=== PATIENT | female | born 1990 | race Hispanic/Latino ===

== ENCOUNTER → 2024-06-17 | Outpatient (CLI) | payer OTHER | END | disposition home or self-care (01) | LOC: RAH 13:41 | PROVIDERS: ATTEND Family Medicine | DX: R22.1 Localized swelling, mass and lump, neck (principal) | CPT/HCPCS: 76536 ==

== ENCOUNTER 2025-03-07 13:06 | Emergency (ER) | payer OTHER ==
[~2025-03-07] VITALS: Ht 152.4 cm; Wt 85.7 kg
--- NOTE | 2025-03-07 13:14 | ERN ---
ED Note History of Present Illness Stated Complaint: GENREALIZED RASH Chief Complaint: Allergic Reaction Time Seen by MD: 13:07 Dictation: PATIENT IS A 34-YEAR-OLD FEMALE COMING IN WITH A GENERALIZED MACULAR RASH THAT IS NONPRURITIC ONSET WAS LAST NIGHT. SHE STATES SHE HAS HAD LOW-GRADE FEVER WITH FLU-LIKE SYMPTOMS FOR THE LAST TWO DAYS. NO NAUSEA VOMITING NO LOSS OF TASTE OR SMELL. SHE HAS A MILD SORE THROAT WITH CLEAR RHINITIS. NO CHANGE IN URINATION NO BACK PAIN NO CHEST PAIN. PRIMARY CARE DOCTOR. SHE SAID SHE HAS N OT TAKEN ANYTHING FOR THE ALLERGIES BECAUSE SHE HAS MULTIPLE DRUG ALLERGIES TO INCLUDE ANTIHISTAMINES AND DOES NOT KNOW WHAT TO TAKE. BILATERAL BREATH SOUNDS ARE CLEAR AT THIS TIME, NO ANGIOEDEMA NOTED NO STRIDOR Allergies: Coded Allergies: Antihistamines - Alkylamine (Unverified Allergy, Unknown, 03/07/25) Antihistamines - Ethanolamine (Unverified Allergy, Unknown, 03/07/25) Antihistamines - Piperazine (Unverified Allergy, Unknown, 03/07/25) Antihistamines - Piperidine (Unverified Allergy, Unknown, 03/07/25) acetaminophen (Unverified Allergy, Unknown, 03/07/25) cetirizine (Unverified Allergy, Unknown, 03/07/25) diphenhydramine (Unverified Allergy, Unknown, 03/07/25) guaifenesin (Unverified Allergy, Unknown, 03/07/25) Past Medical History Past Medical History: No Pertinent History Surgical History: None History: Not Applicable RN Note Reviewed/Agreed w/PFSH: Yes Review of System Dictation CONSTITUTIONAL: NEGATIVE EXCEPT FOR HPI FEVER HEAD/FACE: NEGATIVE EXCEPT FOR HPI EENT: NEGATIVE EXCEPT FOR HPI SORE THROAT WITH PAINFUL SWALLOWING RESPIRATORY: NEGATIVE EXCEPT FOR HPI GASTROINTESTINAL/ABDOMINAL: NEGATIVE EXCEPT FOR HPI GENITOURINARY: NEGATIVE EXCEPT FOR HPI MUSCULOSKELETAL: NEGATIVE EXCEPT FOR HPI INTEGUMENTARY: NEGATIVE EXCEPT FOR HPI MACULAR RASH NEUROLOGICAL/PSYCH: NEGATIVE EXCEPT FOR HPI HEMATOLOGIC/LYMPHATIC: NEGATIVE EXCEPT FOR HPI ALL SYSTEMS NEGATIVE, EXCEPT NOTED ABOVE. 13 POINT REVIEW OF SYSTEMS ASSESSED AND ALL NEGATIVE EXCEPT FOR ABOVE. Initial Vital Sign VS Vital Signs Date Time Temp Pulse Resp B/P (MAP) Pulse Ox O2 Delivery O2 Flow Rate FiO2 03/07/25 13:07 97.7 112 14 129/90 98 Room Air 0 6/8/25 14:25 21 Physical Exam Dictation VITAL SIGNS REVIEWED GENERAL APPEARANCE: ALERT, ORIENTED X 3, MILD ACUTE DISTRESS, WELL DEVELOPED, NOURISHED. OBESE HEAD AND FACE: NON-TRAUMATIC. EYES: PERRL, PINK CONJUNCTIVAS, EYELID NO TRAUMA, ANTERIOR CHAMBER WITH ARCUS SENILIS. EARS: PINNAS INTACT AND NO SIGNS OF TRAUMA OR ERYTHEMA EAR CANALS CLEAR AND NO DISCHARGE TM NO ERYTHEMA NOSE: NO DISCHARGE, NO BLEEDING. OROPHARYNX: MOUTH NORMAL, TONGUE PINK, NO ANGIOEDEMA PHARYNX CLEAR, MILD PHARYNGEAL ERYTHEMA, TONSILS NO EXUDATES, NO ABSCESSES NOTED, MUCOUS MEMBRANE MOIST UVULA MIDLINE, VOICE IS CLEAR NECK: SUPPLE, NON-TENDER, NO THYROMEGALY, NO MASSES, NO JVD, NO BRUITS BREAST:DEFERRED CHEST:NO TENDERNESS, NO CREPITUS, NO PARADOXICAL MOVEMENT, NO RETRACTIONS LUNGS:CLEAR, WELL-VENTILATED, SYMMETRIC, NO RALES, NO WHEEZING, NO RHONCHI, NO STRIDOR, GOOD BREATH SOUNDS BILATERALLY HEART: REGULAR RATE, REGULAR RHYTHM, NO MURMUR, NO GALLOPS VASCULAR: NO PERIPHERAL EDEMA, ABDOMEN: SOFT, POSITIVE BOWEL SOUNDS, NONDISTENDED, NO GUARDING, NONTENDER, NO REBOUND, NO MASSES NO HEPATOMEGALY, NO SPLENOMEGALY, NO JOVEL'S SIGN, NO HERNIAS. RECTAL: DEFERRED GENITAL: DEFERRED NEUROLOGICAL: NORMAL SPEECH, MOTOR FUNCTION INTACT, SENSORY FUNCTION INTACT MUSCULOSKELETAL: NECK NONTENDER, FULL RANGE OF MOTION, BACK NONTENDER, FULL RANGE OF MOTION, EXTREMITIES: NONTENDER, FULL RANGE OF MOTION SKIN: COLOR PINK, DRY, NO TURGOR, NO RASH, NO LACERATIONS, NO ABRASIONS, NO CONTUSIONS. LYMPHATIC: DEFERRED Results (Laboratory/Radiology) Laboratory/Radiology Laboratory Tests Test 03/07/25 13:30 Influenza Type A Antigen Negative For Type A Influenza Type B Antigen Positive For Type B SARS-CoV-2 Antigen (Rapid) PRESUMPTIVE NEGATIVE Group A Streptococcus Rapid negative (NEGATIVE) Labs Reviewed?: Yes ED Course ED Course Orders Procedure Category Date Status Time Dexamethasone 4mg/Ml PHA 03/07/25 Complete 1ml Vial (Dexametha 13:30 Rapid (Group A Strep) LAB 03/07/25 Complete 13:10 Covid19 (Sars Antigen LAB 03/07/25 Complete Rapid) 13:10 Influenza Type A & B, LAB 03/07/25 Complete Rapid 13:10 Current Medications Medications (Trade) Dose Ordered Sig/Ashlie Route PRN Reason Start Time Stop Time Status Last Admin Dose Admin Dexamethasone Sodium Phosphate (dexaMETHasone 4MG/ML 1ML VIAL) 8 mg ONCE ONCE IM 03/07/25 13:30 03/07/25 13:31 DC 03/07/25 13:27 Vital Signs Date Time Temp Pulse Resp B/P (MAP) Pulse Ox O2 Delivery O2 Flow Rate FiO2 03/07/25 14:25 97.7 100 16 121/83 98 Room Air* 0 21 03/07/25 13:07 97.7 112 14 129/90 98 Room Air 0 Medical Decision Making [facility] 1530/MEDICAL DISCHARGE MAKING BASED ON SWABS FOR FLU COVID AND STREP. PATIENT UNABLE TO TAKE ANTIHISTAMINES DUE TO PRIOR HISTORY OF ALLERGIES SHE WAS GIVEN STEROIDS AND STATES SHE FEELS BETTER. SHE HAS A POSITIVE FLU B SWAB WE WILL DISCHARGED HOME WITH TAMIFLU SHE WAS IN THE GIVEN A LIST OF LOCAL PRIMARY CARE DOCTOR DX & DISP Disposition: Discharge Departure Impression: Primary Impression: Influenza B Additional Impression: Rash Condition: Stable Scripts Methylprednisolone (Medrol) 4 Mg Tab.ds.pk 1 TAB PO AD for 6 Days, #21 TAB 0 Refills 6 on day 1 then reduce by one tablet daily until gone Prov: NARGIS LAU [employer]ESS[employer] 03/07/25 Oseltamivir Phosphate (Tamiflu) 75 Mg Cap 75 MG PO BID for 5 Days, #10 CAP Prov: NARGIS LAU [employer] PROFESS[employer] 03/07/25 Additional Instructions: FOLLOW-UP WITH PRIMARY CARE PROVIDER IN 1 TO 2 DAYS. TAKE MEDICATIONS DIRECTED HERE IN THE EMERGENCY ROOM. OKAY TO CONTINUE HOME MEDICATIONS UNLESS OTHERWISE DISCUSSED DURING YOUR VISIT IN THE EMERGENCY ROOM TODAY. RETURN TO YOUR NEAREST EMERGENCY ROOM IF SYMPTOMS WORSEN OR IF THERE IS NO IMPROVEMENT. CALL 911 IF YOU NEED IMMEDIATE ASSISTANCE. TAKE TYLENOL OR MOTRIN [id number] NEEDED AND IF NO CONTRAINDICATIONS ARE PRESENT. INCREASE ORAL HYDRATION. A WOUND CULTURE OR URINE CULTURE WAS ORDERED HERE IN THE EMERGENCY ROOM DEPARTMENT PLEASE FOLLOW-UP WITH PRIMARY CARE PROVIDER AND ADVISE THEM TO GET REPEAT PORTS FROM OUR FACILITY. IF YOU HAD ANY DANAE WRAP/SPLINTS THAT WERE APPLIED HERE, PLEASE DO NOT REMOVE THEM UNTIL YOU SEE YOUR PRIMARY CARE OR SPECIALTY. TAKE TAMIFLU DIRECTED UNTIL GONE. , INCREASE YOUR WATER INTAKE., TAKE TYLENOL OR MOTRIN [id number] NEEDED FOR FEVER PAIN. FOLLOW UP WITH ONE OF THE DOCTORS ON THE LIST PROVIDED YOU IN THE NEXT 1-2 DAYS. NO WORK UNTIL CLEARED BY YOUR DOCTOR. Referrals: RADHA RIOJAS MD (PCP) Time of Disposition: 15:31 I have reviewed the case, and I agree with, Diagnosis and Plan NARGIS LAU NP Mar 07, 2025 13:14
[2025-03-07] MEDS: dexaMETHasone SOD PHOSPHATE 4 MG/ML 1ML VIAL IM ONE (13:27)
[2025-03-07 14:21] LABS: RAPID GROUP A STREP negative (NEGATIVE)
[2025-03-07 14:25] VITALS: BP 121/83; PULSE 100; RESP 16; TEMP 97.7; O2SAT 98
[2025-03-07 14:31] LABS: COVID19 (SARS ANTIGEN RAPID) PRESUMPTIVE NEGATIVE (NEGATIVE); INFLUENZA TYPE A Negative For Type A (NEGATIVE)
[2025-03-07 15:18] LABS: INFLUENZA TYPE B Positive For Type B (NEGATIVE)
[2025-03-07] MEDS ORDERED: METH4TAB3 PO (15:32)
[2025-03-07] MEDS ORDERED: OSEL75 PO (15:32)
== END 2025-03-07 15:35 | disposition home or self-care (01) ==
LOC: EDH 13:06
DX: J10.1 Influenza due to other identified influenza virus with other respiratory manifestations (principal); R21 Rash and other nonspecific skin eruption; Z20.822 Contact with and (suspected) exposure to COVID-19
CPT/HCPCS: 99283; 87426; 87880; 87804 ×2; 96372; J1100; 99285